=== PATIENT | male | born 1965 | race American Indian/Alaskan Native ===

== ENCOUNTER 2019-06-11 09:31 | Emergency (ER) | payer MEDICARE ==
[2019-06-11] MEDS ORDERED: SODIUM CHLORIDE 0.9% 500 ML 500 ML IV ONE (11:03)
[2019-06-11] MEDS ORDERED: MORPHINE 4 MG/1 ML INJ IV ONE (11:03)
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
[2019-06-11 11:59] LABS: INR 0.97 (0.87-1.13)
[2019-06-11 12:14] LABS: Hematocrit 49.1 % (35.5-45.6); Hemoglobin 16.5 gm/dl (11.8-15.2); Mean Corpuscular HGB Conc 34 % (32-34); Mean Corpuscular Volume 86 fl (84-94); Platelet Count 260 K/mm3 (140-440); Red Cell Distribution Width 14.3 % (13.2-15.2)
[2019-06-11 12:33] LABS: Alanine Aminotransferase 34 units/L (7-56); Albumin 4.1 g/dL (3.9-5); BUN/Creatinine Ratio 24; Blood Urea Nitrogen 19 mg/dL (9-20); Calcium 9.2 mg/dL (8.4-10.2); Hemolysis Index 22
[2019-06-11 13:18] LABS: Bilirubin,Urine NEG (Negative); Blood,Urine LG (Negative); Color,Urine Straw (Yellow); Protein,Urine <15 mg/dL mg/dL (Negative); Urobilinogen,Urine < 2.0 mg/dL (<2.0)
[2019-06-11] MEDS ORDERED: FAMOTIDINE 20 MG/2 ML INJ IV ONE (14:03)
[2019-06-11] MEDS ORDERED: ONDANSETRON 4 MG/2 ML INJ IV ONE (14:03)
[2019-06-11] MEDS ORDERED: methylPREDNISolone Sod Succinate 125 MG/2 ML INJ IV ONE (14:03)
[2019-06-11] MEDS ORDERED: diphenhydrAMINE 50 MG/ML VIAL IV ONE (14:03)
[2019-06-11 16:11] VITALS: BP 128/81
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
== END 2019-06-11 16:55 | disposition home or self-care (01) ==
LOC: ED 09:31
DX: M25.551 Pain in right hip (principal); M54.5 Low back pain; E11.9 Type 2 diabetes mellitus without complications; K21.9 Gastro-esophageal reflux disease without esophagitis; Z96.652 Presence of left artificial knee joint; Z79.1 Long term (current) use of non-steroidal anti-inflammatories (NSAID); Z79.899 Other long term (current) drug therapy; V89.2XXA Person injured in unspecified motor-vehicle accident, traffic, initial encounter; Y93.89 Activity, other specified; Y92.488 Other paved roadways as the place of occurrence of the external cause; Y99.8 Other external cause status
CPT/HCPCS: 36415; 74177; 80053; 81001; 82550; 83690; 83735; 85027; 85610; 93005; 93010; 96374; 96375; 99285; J1200; J2270; J2405; J2930; J7040; Q9967